=== PATIENT | male | born 1980 | race Caucasian/White ===

== ENCOUNTER 2016-07-03 20:18 | Emergency (ER) | payer BC ==
[~2016-07-03] VITALS: Ht 182.9 cm; Wt 108.9 kg
--- NOTE | ~2016-07-03 | EKG ---
[address] [address] ELECTROCARDIOGRAM REPORT Name: BETTIE DORANTES Room #: DEP [facility]#: [id number] Admission: 07/03/16 Attend Phys: Discharge: 07/03/16 Date of : 76 Report #: [id number] THIS REPORT FOR: //name// [facility] ED Test Date: 2016-07-03 Test Time: 20:23:27 Pat Name: BETTIE DORANTES Department: Room: Gender: M Radio Announcer: Janet LAGUNA : 1980 Requested By: Brant Villela Order Number: [id number] MD: Severo Roberts Measurements Intervals [place] Rate: 79 P: 1 [place]: 158 QRS: -17 QRSD: 98 T: 19 QT: 360 QTc: 413 Interpretive Statements Sinus rhythm Borderline left axis deviation Compared to ECG 08/07/2015 09:29:59 No significant changes Electronically Signed On 07-04-2016 15:09:45 CDT by Severo Roberts [email or web address] <ELECTRONICALLY SIGNED> By: Severo Roberts MD, [facility] 07/04/16 1509 22 22 Severo Roberts MD, [facility] /EPI
[~2016-07-03 20:18] MED LIST: DOXYCYCLINE 10100 MG PO; FISH OIL 1,001000 M2 PO; NAPROSYN500 MG PO; NORCO 5-325 TA1 EACH PO; UNICOMPLEX M TA1 TA1 PO
[2016-07-03] MEDS ORDERED: DOXYCYCLINE 10100 MG PO (20:42)
[2016-07-03] MEDS ORDERED: PRILOSEC 20 MG20 MG PO (20:42)
[2016-07-03 21:51] LABS: ABSOLUTE NEUTROPHILS 6.6 thou/uL (1.4-8.2); BASOPHILS 0.6 % (0.0-2.0); EOSINOPHILS 0.1 % (0.0-3.0); HEMATOCRIT 41.6 % (42.0-52.0); HEMOGLOBIN 13.9 gm/dL (14.0-18.0); LYMPHOCYTES 27.5 % (24.0-44.0); MCHC 33.3 g/dL (28.0-37.0); MONOCYTES 5.2 % (1.0-8.0); PLATELET COUNT 208 thou/uL (150-400); POLYS 66.6 % (36.0-66.0); RBC 5.55 mil/uL (4.50-6.00); RDW 14.7 % (10.5-14.5); WBC 9.9 thou/uL (4.0-11.0)
[2016-07-03 21:52] LABS: MANUAL DIFF NO
[2016-07-03 22:02] LABS: ANION GAP 8 mmol/L (7-16); BUN 10 mg/dL (7-18); CALCIUM 8.8 mg/dL (8.5-10.1); CHLORIDE 105 mmol/L (98-107); CO2 28 mmol/L (21-32); CREATININE 1.2 mg/dL (0.7-1.3); GLUCOSE 90 mg/dL (74-106); SODIUM 141 mmol/L (136-145)
[2016-07-03 22:10] LABS: ALBUMIN 3.9 g/dL (3.4-5.0); ALKALINE PHOSPHATASE 65 U/L (46-116); SGOT 21 U/L (15-37); SGPT 56 U/L (30-65); TOTAL BILIRUBIN 0.3 mg/dL (<0.1-1.0); TROPONIN-I < 0.04 ng/mL (<0.04-0.07)
[2016-07-03 23:41] VITALS: BP 127/73
== END 2016-07-03 23:42 | disposition home or self-care (01) ==
LOC: ER 20:18
PROVIDERS: Physician Assistant
DX: R07.9 Chest pain, unspecified (principal)

== ENCOUNTER → 2017-07-04 | Outpatient (CLI) | payer BC ==
[~2017-07-04] MED LIST changes: +PRILOSEC 20 MG20 MG PO
== END ==
LOC: ULTRA 08:54
DX: K76.0 Fatty (change of) liver, not elsewhere classified (principal)

== ENCOUNTER → 2017-07-18 | Outpatient (CLI) | payer BC, OTHER | LOC: NUC 09:01 | DX: R10.11 Right upper quadrant pain (principal) ==

== ENCOUNTER → 2018-05-04 | Outpatient (CLI) | payer BC | LOC: CAT 05-02 13:52 | DX: J98.4 Other disorders of lung (principal); R91.8 Other nonspecific abnormal finding of lung field ==

== ENCOUNTER → 2019-04-09 | Outpatient (CLI) | payer BC | LOC: CAT 15:20 | DX: R91.8 Other nonspecific abnormal finding of lung field (principal) ==

== ENCOUNTER → 2020-05-09 | Outpatient (CLI) | payer OTHER | LOC: CAT 09:02 | PROVIDERS: ATTEND Family Medicine | DX: Z13.6 Encounter for screening for cardiovascular disorders (principal); I25.10 Atherosclerotic heart disease of native coronary artery without angina pectoris; E78.00 Pure hypercholesterolemia, unspecified ==